=== PATIENT | female | born 1970 | race Caucasian/White ===

== ENCOUNTER 2021-04-05 04:38 | Day surgery (SDC) | payer BC ==
[2021-04-03 12:33] VITALS: BMI 29.2
[2021-04-05] MEDS ORDERED: BUPIVACAINE HCL/PF 0.5% (5MG/ML) 10 ML VIAL ONE (07:12)
[2021-04-05] MEDS ORDERED: LIDOCAINE HCL 1%, 10 MG/ML (20ML VIAL) ONE (07:12)
[2021-04-05] MEDS ORDERED: PROPOFOL 20 ML ONE (07:43)
[2021-04-05] MEDS ORDERED: MIDAZOLAM HCL 2 MG/2 ML SINGLE DOSE VIAL ONE ×2 (07:43→08:08)
[2021-04-05] MEDS ORDERED: ceFAZolin SODIUM 1 GM VIAL ONE (07:54)
[2021-04-05] MEDS ORDERED: BUPIVACAINE HCL/PF 0.5% (5MG/ML) 10 ML VIAL IJ ONE (07:55)
[2021-04-05] MEDS ORDERED: ceFAZolin SODIUM 1 GM VIAL IVPB ONE (07:55)
[2021-04-05] MEDS ORDERED: LIDOCAINE HCL 1%, 10 MG/ML (20ML VIAL) NR ONE ×2 (07:55)
[2021-04-05] MEDS ORDERED: KETOROLAC TROMETHAMINE 30 MG/1 ML VIAL ONE (08:19)
[2021-04-05] MEDS ORDERED: DEXAMETHASONE SOD PHOSPHATE 4 MG/1 ML VIAL ONE (08:19)
[2021-04-05] MEDS ORDERED: GENTAMICIN SO4 80 MG/2 ML VIAL ONE (08:23)
[2021-04-05] MEDS ORDERED: GENTAMICIN SO4 80 MG/2 ML VIAL IVPB ONE (08:24)
[2021-04-05] MEDS ORDERED: oxyCODONE HCL 5 MG TABLET PO PRN ×2 (08:49)
[2021-04-05] MEDS ORDERED: ONDANSETRON 4 MG/2 ML VIAL IVPUSH PRN (08:49)
[2021-04-05] MEDS ORDERED: LACTATED RINGERS SOLUTION 1,000 ML IV SCH (09:00)
[2021-04-05 12:22] VITALS: BP 106/58; PULSE 62; TEMP 97.7
== END 2021-04-05 11:45 | disposition home or self-care (01) ==
LOC: JASU-SURG 04:38
PROVIDERS: ATTEND Podiatrist
PROC: 0QBQ0ZZ Excision of Right Toe Phalanx, Open Approach (ICD-10-PCS; 2021-04-05)
PROC: 0SRP0JZ Replacement of Right Toe Phalangeal Joint with Synthetic Substitute, Open Approach (ICD-10-PCS; principal; 2021-04-05 07:30)
DX: M20.41 Other hammer toe(s) (acquired), right foot (principal)
CPT/HCPCS: 73630-TC-RT-FY; 81025; 88304-TC; 88311-TC